=== PATIENT | female | born 1995 | race African-American/Black ===

== ENCOUNTER 2019-08-17 17:16 | Emergency (ER) | payer OTHER ==
[2019-08-17] MEDS ORDERED: METHOCARBAMOL 750 MG TABLET PO ONE (18:29)
--- NOTE | 2019-08-17 18:29 | ER Document Report ---
HPI - HPI Time Seen by Provider: 08/17/19 18:22 Pain Level: 2 Notes: Otherwise healthy 24-year-old female presenting with right-sided chest wall pain, worse with movements over the last 3 days after working out at the gym. Denies any shortness of breath, fever, nausea, vomiting. - CONSTITUTIONAL Constitutional: DENIES: Fever, Chills Past Medical History - General Information source: Patient - Social History Smoking Status: Never Smoker Chew tobacco use (# tins/day): No Frequency of alcohol use: None Drug Abuse: None Family History: Reviewed & Not Pertinent Patient has suicidal ideation: No Patient has homicidal ideation: No - Medical History Medical History: Negative Surgical Hx: Negative Vertical Provider Document - CONSTITUTIONAL Notes: PHYSICAL EXAMINATION: GENERAL: Well-appearing, well-nourished and in no acute distress. HEAD: Atraumatic, normocephalic. EYES: Pupils equal round and reactive to light, extraocular movements intact, conjunctiva are normal. ENT: Nares patent, oropharynx clear without exudates. Moist mucous membranes. NECK: Normal range of motion, supple without lymphadenopathy LUNGS: Breath sounds clear to auscultation bilaterally and equal. No wheezes rales or rhonchi. HEART: Regular rate and rhythm without murmurs ABDOMEN: Soft, nontender, nondistended abdomen. No guarding, no rebound. No masses appreciated. Female : deferred Musculoskeletal: Normal range of motion, no pitting or edema. No cyanosis. Tenderness with palpation along the right chest wall no crepitus or deformity on palpation. NEUROLOGICAL: Cranial nerves grossly intact. Normal speech, normal gait. Normal sensory, motor exams PSYCH: Normal mood, normal affect. SKIN: Warm, Dry, normal turgor, no rashes or lesions noted. - INFECTION CONTROL TRAVEL OUTSIDE OF THE [place] IN LAST 30 DAYS: No Course - Re-evaluation Re-evalutation: Ribs w/Chest X-Ray 08/17/19 18:29 IMPRESSION: NO PNEUMOTHORAX. NO DISPLACED RIB FRACTURES. - Vital Signs Vital signs: Temp Pulse Resp BP Pulse Ox 98.9 F 68 20 131/74 H 100 08/17/19 17:45 08/17/19 17:45 08/17/19 17:45 08/17/19 17:45 08/17/19 17:45 Discharge - Discharge Clinical Impression: Chest wall pain Condition: Stable Disposition: HOME, SELF-CARE Additional Instructions: Please take muscle relaxer as prescribed. Take ibuprofen 600 mg every 6 hours. You may try to put moist heat to the area to see if that will help. If the pain does not start improving over the next 3 to 5 days I would consider following up with your primary care physician for possible referral to a orthopedic or sports medicine physician. Return to the emergency department with any new or worsening symptoms. Please call [facility] [place] tomorrow to find out who your primary care physician is. Prescriptions: Methocarbamol [Robaxin 750 mg Tablet] 750 mg PO Q4 #30 tablet
--- NOTE | 2019-08-17 19:07 | RADIOLOGY REPORT (SQ) ---
EXAM DESCRIPTION: RIBS RIGHT W/PA CHEST COMPLETED DATE/TIME: 08/17/2019 6:55 pm REASON FOR STUDY: R anterior chest/rib pain COMPARISON: None. TECHNIQUE: Frontal view of the chest and additional views of the right ribs acquired. NUMBER OF VIEWS: Three view. LIMITATIONS: None. FINDINGS: FRONTAL CXR: No pneumothorax. No pleural effusion. No atelectasis or infiltrates. RIBS: No displaced rib fractures. No lytic or blastic bony lesions. OTHER: No other significant finding. IMPRESSION: NO PNEUMOTHORAX. NO DISPLACED RIB FRACTURES. COMMENT: SITE OF TRAUMA/COMPLAINT MARKED/STAMP COMPLETED: YES. TECHNICAL DOCUMENTATION: JOB ID: [id number] [email or web address]- All Rights Reserved Reading location - IP/workstation name: [email or web address]
[2019-08-17 19:46] VITALS: BP 108/61
== END 2019-08-17 20:15 | disposition home or self-care (01) ==
LOC: ER 17:16
DX: R07.89 Other chest pain (principal)
CPT/HCPCS: 99283; 71101; J3490